=== PATIENT | female | born 1990 | race Caucasian/White ===

== ENCOUNTER → 2020-11-13 11:25 | Outpatient (BNVA) | payer OTHER, SELFPAY | PROVIDERS: Visit Provider Physician Assistant ==

== ENCOUNTER → 2020-11-20 07:57 | Outpatient (BNVA) | payer OTHER, SELFPAY | PROVIDERS: Visit Provider Surgery ==

== ENCOUNTER 2020-11-25 08:58 | Outpatient (REF) | payer OTHER, SELFPAY ==
--- NOTE | ~2020-11-25 | XR_ITS ---
EXAMINATION: XR CHEST CLINICAL INFORMATION: Morbid obesity COMPARISON: None TECHNIQUE: 2 views of the chest were obtained. FINDINGS: No significant abnormality is noted involving the heart, lungs, mediastinum, bony thorax or soft tissues. XR/XR chest 2V IMPRESSION: Unremarkable examination.
--- NOTE | 2020-11-25 09:07 | ECG_ITS ---
Test Reason : OBESITY Blood Pressure : / mmHG Vent. Rate : 069 BPM Atrial Rate : 069 BPM P-R Int : 188 ms QRS Dur : 082 ms QT Int : 400 ms P-R-T Axes : -10 -05 -08 degrees QTc Int : 428 ms Normal sinus rhythm Possible Inferior infarct , age undetermined Abnormal ECG No previous ECGs available Referred By: aGmal Rodgers Electronically Signed By:ZOEY MARTINEZ MD
[2020-11-25 09:30] LABS: MANUAL DIFF FLAG NO
[2020-11-25 09:34] LABS: Basophils Percent Auto 0.3 % (0-2); Eosinophils Absolute Auto 0.2 X10*3/uL (0.0-0.4); Eosinophils Percent Auto 1.5 % (0-4); Hematocrit 38.1 % (37-47); Hemoglobin 13.2 g/dl (12.0-16.0); Imm Gran Abs Auto 0.03 X10*3/uL (0.00-0.03); Imm Gran Pct Auto 0.3 % (0.0-0.4); Lymphocytes Absolute Auto 2.4 X10*3/uL (1.2-4.9); Mean Corpuscular HGB Conc 34.6 g/dl (31.0-35.0); Mean Corpuscular Hemoglobin 29.5 pg (27.0-33.0); Mean Corpuscular Volume 85.2 fL (80-98); Mean Platelet Volume 10.5 fL (9.4-12.3); Monocytes Absolute Auto 0.5 X10*3/uL (0.1-1.2); Monocytes Percent Auto 5.1 % (2-11); Neutrophils Absolute Auto 7.4 X10*3/uL (2.0-8.3); Neutrophils Percent Auto 69.8 % (45-73); Platelet Count 436 X10*3/uL (160-400); Red Blood Count 4.47 X10*6/uL (4.20-5.50); Red Cell Distribution Width 12.9 % (11.0-16.0); White Blood Count 10.6 X10*3/uL (4.8-10.8)
[2020-11-25 09:45] LABS: Estimated Average Glucose 94 mg/dL; Hemoglobin A1c % 4.9 %
[2020-11-25 09:53] LABS: Alanine Aminotransferase 23 U/L (0-31); Albumin Level 4.1 g/dL (3.5-5.0); Alkaline Phosphatase 91 U/L (39-117); Anion Gap 12 (12-20); Aspartate Amino Transferase 14 U/L (5-31); Bilirubin Total 0.9 mg/dL (0.0-1.0); Blood Urea Nitrogen 16 mg/dL (9-16); C Reactive Protein 0.69 mg/dL (< or = 0.50); Calcium 9.1 mg/dL (8.4-10.2); Carbon Dioxide 19 mmol/L (22-29); Chloride 111 mmol/L (96-108); Cholesterol 187 mg/dL; Estimated Glomerular Filt Rate > 60; Glucose Random 94 mg/dL (60-115); HDL Cholesterol 35 mg/dL; LDL Cholesterol Calculated 129 mg/dl; Potassium 4.1 mmol/L (3.3-5.1); Sodium 138 mmol/L (135-145); Total Protein 7.1 g/dL (6.5-8.0); Triglycerides 117 mg/dL
[2020-11-25 10:17] LABS: Ferritin 15 ng/mL (10-122); TSH reflex Free T4 0.73 uIU/mL (0.32-4.0); Vitamin D 25-OH Total 20.3 ng/mL (>30)
[2020-11-25 10:42] LABS: Folate 12.5 ng/mL (> or = 4.0); Vitamin B12 320 pg/mL (200-900)
[2020-11-26 11:51] LABS: Insulin Level Total 20.9 uIU/mL
[2020-11-26 13:06] LABS: Calcium (PTHI) 9.1 mg/dL (8.6-10.2); PTHI 38 pg/mL (14-64)
[2020-11-26 15:07] LABS: H Pylori Breath Test NOT DETECTED (NOT DETECTED)
[2020-11-28 06:47] LABS: Zinc 89 mcg/dL (60-130)
[2020-11-29 13:27] LABS: Vitamin B1 13 nmol/L (8-30)
[2020-11-30 00:52] LABS: Vitamin A 42 mcg/dL (38-98)
== END 2020-11-25 08:59 | disposition home or self-care (01) ==
LOC: HO.LAB 08:58
PROVIDERS: Physician Assistant; PCP Nurse Practitioner Family; Visit Provider Surgery
DX: Z01.818 Encounter for other preprocedural examination (principal); E66.01 Morbid (severe) obesity due to excess calories; R94.31 Abnormal electrocardiogram [ECG] [EKG]
CPT/HCPCS: 36415; 71046; 80053; 80061; 82306; 82607; 82728; 82746; 83013; 83036; 83525; 83970; 84425; 84443; 84590; 84630; 85025; 86140; 93005; 99211

== ENCOUNTER → 2020-12-07 09:01 | Outpatient (REF) | payer OTHER, SELFPAY ==
--- NOTE | 2020-12-07 09:04 | CA_ITS ---
Acquisition Time: 2020-12-07 09:14:52 Total Exercise Time: 00:06:11 Test Indications: Abnormal ECG Medications: FLUOXETINE TOPIRAMATE Protocol: VIKKI Max HR: 184 BPM 96% of Pred: 191 BPM Max BP: 156/060 mmHG Max Work Load: 7.2 METS Exercise stress test using Vikki protocol, total of 6 min 11 sec. METS 7.20 and TAPHR up to 96%. Pt tolerated well, denies any anginal sx, EKG with no arrhythmias, no ischemic changes seen during exercise or in recovery. Normotensive response to exercise. Test reviewed with Dr. Pineda. Referred By: Gamal Rodgers Overread By: Carline Mathis NP
== END ==
LOC: HO.CARD 09:01
PROVIDERS: Visit Provider Surgery
DX: Z01.818 Encounter for other preprocedural examination (principal); R94.31 Abnormal electrocardiogram [ECG] [EKG]; R06.02 Shortness of breath; I10 Essential (primary) hypertension
CPT/HCPCS: 93016; 93017; 93018

== ENCOUNTER 2020-12-09 09:24 | Outpatient (REF) | payer OTHER, SELFPAY ==
--- NOTE | ~2020-12-09 | US_ITS ---
EXAMINATION: FL UPPER GI SERIES US ABDOMEN COMPLETE WITH ELASTOGRAPHY CLINICAL INFORMATION: Moderate/severe obesity due to excess calories. COMPARISON: None. TECHNIQUE: Routine upper GI air-contrast study was performed in upright and lying position. FINDINGS: UPPER GI: Following oral administration of thick barium and effervescent granules, there is normal propagation of bolus from the oral cavity through the pharynx and esophagus and into stomach without any evidence of obstruction, narrowing or stricture. On placing patient supine and prone lying, the course, caliber and peristalsis of stomach, duodenum bulb and the sweep are normal. The mucosal pattern of stomach, the duodenal bulb and sweep are normal. ULTRASOUND ABDOMEN: The pancreas is homogeneous in echotexture without any enlargement. The peripancreatic fat borders are preserved. The aorta and IVC are normal caliber. The liver is normal size, contour and increased echogenicity. No focal lesion or intrahepatic ductal dilatation seen. There is normal hepatopedal flow seen in the portal vein on Doppler exam. Right hepatic lobe measures 14.7 cm in length and left hepatic lobe measures 8.3 cm in length. On Elastography, the median value is 1.56. The IQR/median stiffness 0.79. The gallbladder is distended without any echogenic stones or wall thickening. There is no tenderness in the right upper quadrant. Common bile duct measures 0.23 cm. Right kidney measures 11.6 cm in length and left kidney measures 11.3 cm in length. Spleen measures 10.2 cm in length. There is no free fluid in the cul-de-sac. US/US abdomen comp w elastography IMPRESSION: Unremarkable upper GI air-contrast study. Diffuse hepatic steatosis without focal lesion. The rest of the abdominal ultrasound is unremarkable.
== END 2020-12-09 09:25 | disposition home or self-care (01) ==
LOC: HO.US 09:24
PROVIDERS: PCP Nurse Practitioner Family; Visit Provider Surgery
DX: Z01.818 Encounter for other preprocedural examination (principal); E66.01 Morbid (severe) obesity due to excess calories; K21.9 Gastro-esophageal reflux disease without esophagitis
CPT/HCPCS: 74240; 76705; 76981

== ENCOUNTER → 2020-12-14 08:16 | Outpatient (BNVA) | payer OTHER, SELFPAY | PROVIDERS: PCP Nurse Practitioner Family; Visit Provider Surgery ==

== ENCOUNTER → 2020-12-16 08:08 | Outpatient (BNVA) | payer OTHER, SELFPAY | PROVIDERS: Visit Provider Dietitian, Registered | DX: E66.01 Morbid (severe) obesity due to excess calories (principal); Z68.41 Body mass index [BMI] 40.0-44.9, adult | CPT/HCPCS: 97802 ==

== ENCOUNTER → 2020-12-30 08:08 | Outpatient (BNVA) | payer OTHER, SELFPAY | PROVIDERS: Visit Provider Dietitian, Registered | DX: E66.01 Morbid (severe) obesity due to excess calories (principal); Z68.41 Body mass index [BMI] 40.0-44.9, adult | CPT/HCPCS: 97803 ==

== ENCOUNTER → 2021-01-05 08:05 | Outpatient (BNVA) | payer OTHER, SELFPAY | PROVIDERS: Visit Provider Surgery ==

== ENCOUNTER → 2021-02-10 07:29 | Outpatient (BNVA) | payer OTHER, SELFPAY | PROVIDERS: Visit Provider Surgery ==

== ENCOUNTER → 2021-08-09 07:32 | Outpatient (BNVA) | payer OTHER, SELFPAY | PROVIDERS: Visit Provider Surgery ==